=== PATIENT | female | born 2000 | race Caucasian/White ===

== ENCOUNTER 2022-02-22 13:06 | Emergency (ER) | payer OTHER ==
[~2022-02-22] VITALS: Ht 162.6 cm; Wt 64.0 kg
[2022-02-22] MEDS ORDERED: PREDNISONE 20MG TABLET PO SCH (16:30)
[2022-02-22] MEDS ORDERED: FAMOTIDINE 20MG TABLET PO ONE (16:30)
[2022-02-22 18:46] LABS: BASOPHILS % 0.2 % (0.0-2.0); EOSINOPHILS % 1.3 % (0.0-5.0); HEMATOCRIT. 40.6 % (36.0-48.0); LYMPHOCYTES % 25.1 % (20.0-50.0); MEAN CORPUSCULAR HEMOGLOBIN 29.8 pg (28.0-32.0); MEAN CORPUSCULAR VOLUME 86.6 fL (81.0-99.0); MEAN PLATELET VOLUME 8.4 fl (7.4-10.4); MONOCYTES % 5.3 % (2.0-8.0); NEUTROPHILS % 68.1 % (40.0-76.0); PLATELET 380 x1000/uL (130-400); RED BLOOD CELL COUNT 4.69 mill/uL (4.2-5.4); RED CELL DISTRIBUTION WIDTH 12.6 % (11.6-14.6)
[2022-02-22 18:59] LABS: CHLORIDE 109 mEq/L (98-107)
[2022-02-22 19:09] LABS: HCG SCREEN NEGATIVE
[2022-02-22 20:30] VITALS: BP 119/73
[2022-02-22] MEDS ORDERED: FAMO20TA8 MT (20:45)
[2022-02-22] MEDS ORDERED: P20 MT (20:45)
[2022-02-22] MEDS ORDERED: CETI10TA11 MT (20:45)
== END 2022-02-22 21:03 | disposition home or self-care (01) ==
LOC: ER 13:06
DX: L50.9 Urticaria, unspecified (principal)
CPT/HCPCS: 36415; 80053; 84703; 85025; 99283; J7512